=== PATIENT | male | born 1980 | race Caucasian/White ===

== ENCOUNTER 2018-09-07 10:50 | Emergency (ER) | payer OTHER, MEDICAID ==
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
[2018-09-07] MEDS ORDERED: KETOROLAC 60 MG/2 ML VIAL IM STA (15:20)
[2018-09-07 15:33] VITALS: BP 141/95
== END 2018-09-07 15:35 | disposition home or self-care (01) ==
LOC: ED 10:50
DX: M62.838 Other muscle spasm (principal); T14.8XXA Other injury of unspecified body region, initial encounter; V89.2XXA Person injured in unspecified motor-vehicle accident, traffic, initial encounter
CPT/HCPCS: 96372; 99282; 99283

== ENCOUNTER 2018-09-16 10:58 | Outpatient (CLI) | payer OTHER, MEDICAID ==
--- NOTE | 2018-09-16 12:34 | XRAY Report ---
Reason: NECK PAIN Procedure Date: 09/16/2018 Accession Number: [id number] / [id number] Procedure: XR - Cervical Spine 2 View CPT Code: FULL RESULT: EXAM: CERVICAL SPINE RADIOGRAPHY EXAM DATE: 09/16/2018 11:47 AM. CLINICAL HISTORY: Neck pain. COMPARISONS: None. TECHNIQUE: 3 views. FINDINGS: Alignment: Normal. No spondylolisthesis or scoliosis. Bones: The cervical vertebral bodies and posterior elements are well visualized from the skull base through C7-T1. No fractures or bone lesions. Disks: Mild anterior disk osteophyte complex formation at C5-C6 and C6-C7. Facets: No significant degenerative disease. Soft Tissues: Normal. No prevertebral soft tissue swelling. The visualized lung apices are clear. IMPRESSION: Mild degenerative changes. [facility]
== END 2018-09-16 10:59 | disposition home or self-care (01) ==
LOC: DI 10:58
PROVIDERS: ATTEND Registered Nurse
DX: M54.2 Cervicalgia (principal); M25.78 Osteophyte, vertebrae
CPT/HCPCS: 72040